=== PATIENT | male | born 1990 | race American Indian/Alaskan Native ===

== ENCOUNTER 2017-11-10 05:05 | Emergency (ER) | payer OTHER ==
[2017-11-10 05:49] LABS: Basophils % (Auto) 0.5 % (0.0-1.8); Eosinophils % (Auto) 0.9 % (0.0-4.3); Hematocrit 42.8 % (35.5-45.6); Hemoglobin 13.7 gm/dl (11.8-15.2); Mean Corpuscular HGB Conc 32 % (32-34); Mean Corpuscular Hemoglobin 28 pg (28-32); Mean Corpuscular Volume 87 fl (84-94); Platelet Count 188 K/mm3 (140-440); Red Blood Count 4.93 M/mm3 (3.65-5.03); White Blood Count 12.7 K/mm3 (4.5-11.0)
--- NOTE | 2017-11-10 06:55 | Cat Scan Report ---
FINAL REPORT EXAM: CT ABDOMEN PELVIS WO CON HISTORY: abd pain vomiting rlq /pelvic pain TECHNIQUE: Routine axial imaging was obtained of the abdomen and pelvis without oral or IV contrast. Sagittal and coronal reconstructions were reviewed. FINDINGS: The lung bases are clear. Pleural fluid is not seen. The liver, gallbladder, pancreas, spleen, and adrenal glands appear normal. Both kidneys reveal multiple punctate calcifications bilaterally. There is mild right-sided hydronephrosis. Because of the paucity of abdominal fat the ureter cannot be followed deep into the pelvis. There is though a suspicious 3.8 millimeter calcification in the expected position of the right UVJ most likely accounting for partial obstruction of the right ureter. There is no evidence of left-sided hydronephrosis. The bowel loops are normal in caliber and course. The appendix is not seen. No definite inflammatory process seen in the right lower quadrant. There is no evidence of free fluid or adenopathy. The prostate gland and bladder otherwise appear normal. The skeletal structures are well-maintained. IMPRESSION: Mild right-sided hydronephrosis as described. Suspicious 3.8 millimeter calcification in the expected position of the right UVJ possibly representing a partially obstructing distal right ureteral stone. Additional punctate nonobstructing calcifications in both kidneys. The appendix is not identified
[2017-11-10 07:03] LABS: Alanine Aminotransferase 23 units/L (7-56); Albumin 4.6 g/dL (3.9-5); Albumin/Globulin Ratio 1.6 %; Alkaline Phosphatase 52 units/L (35-129); Anion Gap 18 mmol/L; BUN/Creatinine Ratio 13; Blood Urea Nitrogen 10 mg/dL (9-20); Calcium 9.2 mg/dL (8.4-10.2); Carbon Dioxide 28 mmol/L (22-30); Chloride 100.1 mmol/L (98-107); Glucose 112 mg/dL (75-100); Lipase 21 units/L (13-60); Potassium 3.6 mmol/L (3.6-5.0); Sodium 142 mmol/L (137-145); Total Protein 7.4 g/dL (6.3-8.2)
[2017-11-10 11:20] LABS: Bilirubin,Urine NEG (Negative); Blood,Urine LG (Negative); Ketones,Urine TR mg/dL (Negative); Leukocyte Esterase,Urine NEG (Negative); Nitrite,Urine NEG (Negative); Protein,Urine <15 mg/dL mg/dL (Negative); Urobilinogen,Urine < 2.0 mg/dL (<2.0)
[2017-11-10] MEDS ORDERED: SUBLIMAZE IV ONE (11:29)
[2017-11-10] MEDS ORDERED: ZOFRAN IV ONE (11:29)
[2017-11-10] MEDS ORDERED: TORADOL IV ONE (11:30)
--- NOTE | 2017-11-10 11:40 | Emergency Department Report ---
HPI - General Chief Complaint: Abdominal Pain Time Seen by Provider: 11/10/17 11:11 - [facility] HPI: Room 18 The patient is a 47-year-old male presenting with a chief complaint of abdominal pain. The patient states he went to sleep in his usual state of health last night but was awakened at 02:00 with lower abdominal pain which she describes as sharp and constant. Patient admits to nausea and vomiting but denies diarrhea. Patient denies hematuria but states in the emergency department he developed some discomfort with urination. Patient denies penile discharge. Patient denies fever. The patient gives his pain a score of 8/10 Location: [See above] Duration: Constant since 02:00 Quality: Sharp Severity: 8/10 Modifying factors: [see above] Context: [see above] Mode of transportation: [not driving] ED Past Medical Hx - Past Medical History Previous Medical History?: No - Surgical History Past Surgical History?: No - Family History Family history: no significant - Social History Smoking Status: Never Smoker Substance Use Type: None (denies illicit drug use), Alcohol (occasional) - Medications Home Medications: Home Medications Medication Instructions Recorded Confirmed Last Taken Type HYDROcodone/APAP 5-325 [[place] 1 - 2 each PO Q6HR PRN #20 tablet 11/10/17 Unknown Rx 5/325] Ketorolac [Toradol] 10 mg PO Q6H PRN #16 tablet 11/10/17 Unknown Rx Ondansetron [Zofran ODT TAB] 8 mg PO Q8HR #20 tab.rapdis 11/10/17 Unknown Rx Tamsulosin [Flomax] 0.4 mg PO QDAY #3 cap 11/10/17 Unknown Rx ED Review of Systems ROS: Stated complaint: ABD PAIN Other details as noted in HPI Constitutional: denies: fever Eyes: denies: eye pain ENT: denies: throat pain Cardiovascular: denies: chest pain Gastrointestinal: abdominal pain, nausea, vomiting. denies: diarrhea Genitourinary: dysuria. denies: hematuria Musculoskeletal: denies: back pain Neurological: denies: headache Physical Exam - Physical Exam Vital Signs: Vital Signs 11/10/17 11/10/17 11/10/17 05:36 08:08 10:12 Temperature 98.2 F 97 F L Pulse Rate 64 63 Respiratory 20 18 Rate Blood Pressure Blood Pressure 122/88 133/67 [Right] O2 Sat by Pulse 98 100 Oximetry 11/10/17 11/10/17 10:15 10:16 Temperature Pulse Rate Respiratory 18 Rate Blood Pressure 116/63 Blood Pressure [Right] O2 Sat by Pulse 100 Oximetry Physical Exam: GENERAL: The patient is well-developed well-nourished male sleeping on stretcher not appear to be in acute distress. [] HEENT: Normocephalic. Atraumatic. Extraocular motions are intact. Patient has moist mucous membranes. NECK: Supple. Trachea midline CHEST/LUNGS: Clear to auscultation. There is no respiratory distress noted. HEART/CARDIOVASCULAR: Regular. There is no tachycardia. There is no gallop rub or murmur. ABDOMEN: Abdomen is soft, with mild tenderness to palpation in the suprapubic and right lower quadrant. Patient has normal bowel sounds. There is no abdominal distention. SKIN: There is no rash. There is no edema. There is no diaphoresis. NEURO: The patient is awake, alert, and oriented. The patient is cooperative. The patient has normal speech MUSCULOSKELETAL: There is right CVA tenderness. There is no evidence of acute injury. ED Course Vital Signs 11/10/17 11/10/17 11/10/17 05:36 08:08 10:12 Temperature 98.2 F 97 F L Pulse Rate 64 63 Respiratory 20 18 Rate Blood Pressure Blood Pressure 122/88 133/67 [Right] O2 Sat by Pulse 98 100 Oximetry 11/10/17 11/10/17 10:15 10:16 Temperature Pulse Rate Respiratory 18 Rate Blood Pressure 116/63 Blood Pressure [Right] O2 Sat by Pulse 100 Oximetry - Reevaluation(s) Reevaluation #1: 11/10/17 12:14 Patient states he feels improved ED Medical Decision Making - Lab Data Result diagrams: 11/10/17 05:38 11/10/17 05:38 Laboratory Tests 11/10/17 11/10/17 11/10/17 05:38 05:38 10:57 WBC 12.7 H RBC 4.93 Hgb 13.7 Hct 42.8 MCV 87 MCH 28 MCHC 32 RDW 13.0 L Plt Count 188 Lymph % (Auto) 24.6 Nobles % (Auto) 9.1 H Eos % (Auto) 0.9 Baso % (Auto) 0.5 Lymph # 3.1 Nobles # 1.2 H Eos # 0.1 Baso # 0.1 Seg Neutrophils % 64.9 Seg Neutrophils # 8.3 H Sodium 142 Potassium 3.6 Chloride 100.1 Carbon Dioxide 28 Anion Gap 18 BUN 10 Creatinine 0.8 Estimated GFR > 60 BUN/Creatinine Ratio 13 Glucose 112 H Calcium 9.2 Total Bilirubin 0.50 AST 27 ALT 23 Alkaline Phosphatase 52 Total Protein 7.4 Albumin 4.6 Albumin/Globulin Ratio 1.6 Lipase 21 Urine Color Straw Urine Turbidity Clear Urine pH 8.0 H Ur Specific O'Brien 1.008 Urine Protein <15 mg/dl Urine Glucose (UA) Neg Urine Ketones Tr Urine Blood Lg Urine Nitrite Neg Urine Bilirubin Neg Urine Urobilinogen < 2.0 Ur Leukocyte Esterase Neg Urine WBC (Auto) 1.0 Urine RBC (Auto) 11.0 - Radiology Data Radiology results: report reviewed (CT abdomen and pelvis), image reviewed (CT abdomen and pelvis) FINAL REPORT EXAM: CT ABDOMEN PELVIS WO CON HISTORY: abd pain vomiting rlq /pelvic pain TECHNIQUE: Routine axial imaging was obtained of the abdomen and pelvis without oral or IV contrast. Sagittal and coronal reconstructions were reviewed. FINDINGS: The lung bases are clear. Pleural fluid is not seen. The liver, gallbladder, pancreas, spleen, and adrenal glands appear normal. Both kidneys reveal multiple punctate calcifications bilaterally. There is mild right-sided hydronephrosis. Because of the paucity of abdominal fat the ureter cannot be followed deep into the pelvis. There is though a suspicious 3.8 millimeter calcification in the expected position of the right UVJ most likely accounting for partial obstruction of the right ureter. There is no evidence of left-sided hydronephrosis. The bowel loops are normal in caliber and course. The appendix is not seen. No definite inflammatory process seen in the right lower quadrant. There is no evidence of free fluid or adenopathy. The prostate gland and bladder otherwise appear normal. The skeletal structures are well-maintained. IMPRESSION: Mild right-sided hydronephrosis as described. Suspicious 3.8 millimeter calcification in the expected position of the right UVJ possibly representing a partially obstructing distal right ureteral stone. Additional punctate nonobstructing calcifications in both kidneys. The appendix is not identified Transcribed By: RB Dictated By: RENEA RODRÍGUEZ MD Electronically Authenticated By: RENEA RODRÍGUEZ MD Signed Date/Time: 11/10/17251 DD/ 1 TD/TT: 11/10/17251 - Differential Diagnosis renal colic, appendicitis, gastritis, peptic ulcer disease, small bowel obs Critical care attestation.: If time is entered above; I have spent that time in minutes in the direct care of this critically ill patient, excluding procedure time. ED Disposition Clinical Impression: Renal colic on right side, Acute abdominal pain, Nausea and vomiting Disposition: TO HOME OR SELFCARE Is pt being admited?: No Does the pt Need Aspirin: No Condition: Stable Instructions: Renal Colic (ED) Additional Instructions: Return to the emergency department immediately should you develop worsening symptoms, fever, inability to tolerate food or liquid or any other concerns. Prescriptions: HYDROcodone/APAP 5-325 [[place] 5/325] 1 - 2 each PO Q6HR PRN #20 tablet PRN Reason: Pain Ketorolac [Toradol] 10 mg PO Q6H PRN #16 tablet PRN Reason: Pain Ondansetron [Zofran ODT TAB] 8 mg PO Q8HR #20 tab.rapdis Tamsulosin [Flomax] 0.4 mg PO QDAY #3 cap Referrals: VEENA DUONG MD [Primary Care Provider] - 3-5 Days NANCY TAM MD [Staff Physician] - 3-5 Days (Dr. Tam is a urologist. Please follow up with him for further evaluation) Time of Disposition: 12:14
[2017-11-10 12:54] VITALS: BP 133/67
== END 2017-11-10 12:54 | disposition home or self-care (01) ==
LOC: EDSEX → ED 05:05
DX: N23 Unspecified renal colic (principal)
CPT/HCPCS: 36415; 74176; 80053; 81001; 83690; 85025; 96374; 96375; 99284; J1885; J2405; J3010